=== PATIENT | male | born 1975 | race Two or more races ===

== ENCOUNTER 2016-07-12 12:48 | Emergency (ER) | payer BC, OTHER, SELFPAY ==
[~2016-07-12 12:48] MED LIST: NO MEDICATIONS
[2016-07-12 13:31] LABS: BASO % 0.2 % (0-2); EOS % 3.2 % (0-7); EOSINOPHIL ABSOLUTE COUNT 0.3 tho/cmm (0.0-0.7); HCT-HEMATOCRIT 46.9 % (36.0-53.5); HGB-HEMOGLOBIN 16.7 gm/dl (13.5-17.0); IMMATURE GRANULOCYTES ABSOLUTE 0.01 tho/cmm (0-0.03); IMMATURE GRANULOCYTES PERCENT 0.1 % (0-0.3); LYMPH % 26.5 % (20-45); LYMPH ABSOLUTE COUNT 2.5 tho/cmm (0.8-4.5); MCH (MEAN CORPUSCULAR HGB) 30.1 pg (28.0-32.0); MCHC MEAN CORPUSCULAR HGB CONC 35.6 % (32.0-36.0); MCV (MEAN CELL VOLUME) 84.7 fl (82.0-96.0); MEAN PLATELET VOLUME 9.9 cmc (9.4-12.4); MONO % 6.9 % (0-12); MONOCYTE ABSOLUTE COUNT 0.7 tho/cmm (0.0-1.2); NEUTROPHIL ABSOLUTE COUNT 5.9 tho/cmm (1.6-8.0); NEUTROPHIL-AUTOMATED 5.9 tho/cmm (1.6-8.0); NEUTROPHILS % 63.1 % (40-80); PLATELET COUNT 247 tho/cmm (150-450); RED BLOOD COUNT 5.54 mil/cmm (4.40-5.70); RED CELL DISTRIBUTION WIDTH 13.8 % (12.4-16.4); WHITE BLOOD COUNT 9.4 tho/cmm (4.0-10.0)
[2016-07-12 13:43] LABS: ANION GAP 9 mmol/L (0-20); BLOOD UREA NITROGEN 8 mg/dl (6-24); CALCIUM 8.8 mg/dl (8.5-10.5); CARBON DIOXIDE-VENOUS 26 mmol/L (22-32); CHLORIDE 111 mmol/l (96-110); CREATININE 0.81 mg/dl (0.60-1.30); GLUCOSE 86 mg/dL (70-110); SODIUM 142 mmol/L (135-145); eGFR VALUE FOR BLACK >90 mL/Min
[2016-07-12 13:50] LABS: ESR-ERYTHROCYTE SED RATE 1 mm/hr (0-15)
[2016-07-12] MEDS ORDERED: NORCO 5-325 TA1 EACH PO (14:19)
[2016-07-12] MEDS ORDERED: COMPAZINE10 MG PO (14:19)
[2016-07-12] MEDS ORDERED: CARDIZEM CD120 M1 PO (14:19)
[2016-07-12] MEDS ORDERED: PREDNISONE10 M1 PO (14:19)
== END 2016-07-12 15:58 ==
LOC: EDMED 12:48
PROVIDERS: Emergency Medicine
DX: R51 Headache (principal); R11.2 Nausea with vomiting, unspecified; R42 Dizziness and giddiness; F17.200 Nicotine dependence, unspecified, uncomplicated
CPT/HCPCS: J1100; J1200; J1885; J2765; J7030